=== PATIENT | female | born 1955 | race Caucasian/White ===

== ENCOUNTER → 2021-02-02 | Outpatient (CLI) | payer OTHER ==
--- NOTE | 2021-02-03 07:23 | CT ---
EXAMINATION TYPE: CT angio chest DATE OF EXAM: 02/02/2021 5:31 PM COMPARISON: Outside CT July 31, 2020 HISTORY: THORACIC AORTA ANEURYSM CT DLP: 444 mGycm Automated exposure control for dose reduction was used. CONTRAST: CTA scan of the thorax is performed with IV Contrast, patient injected with 100 mL of Isovue 370, ane urysm protocol. 3D reconstructed images are created on an independent workstation and reviewed.. FINDINGS: LUNGS: Mild to moderate underlying emphysematous change is redemonstrated greatest in upper lungs. Sc attered mild linear scarring bilaterally is again seen greatest in lower lungs. No suspicious nodules or masses. No pleural effusion or pneumothorax. MEDIASTINUM: There is satisfactory enhancement of the central pulmonary arteries which are enlarged c onsistent with underlying pulmonary artery hypertension. Ascending aorta measures up to 4.7 cm in warren meter axial image 33. Normal three-vessel origin from aortic arch. No aneurysmal extension into the a rch or descending aorta Are no greater than 1 cm hilar or mediastinal lymph nodes. No cardiomegaly or pericardial effusion is seen. OTHER: Focal calcification and scarring posterior left mid kidney axial image 75 redemonstrated. Foc al calcification adjacent to right hepatic lobe axial image 70 redemonstrated. IMPRESSION: Ascending aortic aneurysm up to 4.7 cm current study perhaps slightly increased in size f rom outside CT.
== END | disposition home or self-care (01) ==
LOC: RADCTMAIN 15:12
PROVIDERS: ATTEND Thoracic Surgery (Cardiothoracic Vascular Surgery)
DX: I71.2 Thoracic aortic aneurysm, without rupture (principal)
CPT/HCPCS: 71275; Q9967

== ENCOUNTER → 2022-02-04 | Outpatient (CLI) | payer OTHER ==
--- NOTE | 2022-02-04 16:01 | CT ---
EXAMINATION TYPE: CT angio chest CT DLP: 806 mGycm, Automated exposure control for dose reduction was used. DATE OF EXAM: 02/04/2022 3:23 PM COMPARISON: CTA chest 02/02/2021. CLINICAL INDICATION:Female, 66 years old with history of I71.2 THORACIC AORTIC AORTIC ANEURYSM; [facility] k up on thoracic aorta aneurysm TECHNIQUE/CONTRAST: CTA scan of the thorax is performed before and after IV contrast, patient injected with 100 mL of Iso shalini 370, coronal and sagittal reformats reviewed. MIP images are created and reviewed. FINDINGS: Vascular: Descending aorta measures up to 4.6 cm (series 8, image 70), this is stable from prior exam ination. No aneurysm extension into the arch or descending aorta. Atherosclerotic calcification of th e aorta and its branches. The celiac access, SMA, bilateral single renal arteries are patent. Main pu lmonary artery is prominent in size measuring up to 3.6 cm. Lungs/Pleura: No pleural effusion or pneumothorax. Right upper lobe, right middle lobe, and right low er lobe scarring demonstrated. Mild to moderate centrilobular emphysematous changes redemonstrated. N o suspicious pulmonary nodules or masses. Airway: Large airways are patent. Heart: Heart is within normal limits for size. No pericardial effusion. Minimal coronary artery calci fications. Mediastinum: No gross evidence of adenopathy. Musculoskeletal: No acute osseous abnormalities Soft Tissues: Unremarkable. Lower neck: No significant findings. Upper Abdomen: Stable left renal cortical calcification with focal scarring. Perihepatic calcificatio n redemonstrated possibly representing a peritoneal mice. IMPRESSION: * Stable ascending aortic aneurysm measuring up to 4.6 cm. * Mild to moderate emphysematous changes.
== END | disposition home or self-care (01) ==
LOC: RADCTMAIN 14:04
PROVIDERS: ATTEND Thoracic Surgery (Cardiothoracic Vascular Surgery)
DX: I71.2 Thoracic aortic aneurysm, without rupture (principal)
CPT/HCPCS: 71275; Q9967

== ENCOUNTER → 2023-02-23 | Outpatient (CLI) | payer MEDICARE ==
[2023-02-23 14:21] LABS: African American GFR (CKD) 78 (>60 ml/min/1.73 sqM); Blood Urea Nitrogen 15 mg/dL (7-17); Non-African American GFR(CKD) 68 (>60 ml/min/1.73 sqM)
--- NOTE | 2023-02-23 15:33 | CT ---
EXAMINATION TYPE: CT angio chest DATE OF EXAM: 02/23/2023 COMPARISON: 02/04/2022 HISTORY: Thoracic aortic aneurysm. CT DLP: 806.3 mGycm CONTRAST: CTA thoracic aorta with 3-D reconstruction is performed and with IV Contrast, patient injected with 1 00 ml mL of Isovue 370. Contrast CTA of the thoracic aorta was performed from the lung apex through the upper abdomen. 3D re construction imaging obtained at a separate workstation. CT Chest: THORACIC AORTA: There is a 4.5 cm ascending thoracic aortic aneurysm versus 4.6 cm previously. Stable prominence of the main pulmonary artery. Mild atheromatous changes seen. There is no evidence for d issection or periaortic collection. LUNGS: Mild to moderate emphysematous changes are redemonstrated. The lungs are clear and free of inf iltrate or atelectasis. No pulmonary nodule or mass is detected. No pleural effusion or CT evidence of interstitial lung disease. MEDIASTINUM: No evidence for mediastinal hematoma. The heart is not enlarged. No evidence for med iastinal mass or adenopathy. HILAR STRUCTURES: No evidence for mass. No hilar adenopathy is appreciated. OTHER: No significant abnormality. IMPRESSION- 1. Stable ascending thoracic aortic aneurysm.
== END | disposition home or self-care (01) ==
LOC: RADCTMAIN 13:33
PROVIDERS: ATTEND Thoracic Surgery (Cardiothoracic Vascular Surgery)
DX: I71.21 Aneurysm of the ascending aorta, without rupture (principal)
CPT/HCPCS: 82565; 84520; 71275; 36415; Q9967

== ENCOUNTER → 2023-12-29 | Outpatient (CLI) | payer MEDICARE ==
[2023-12-29 13:36] VITALS: BP 118/81; PULSE 52; RESP 16; TEMP 98.1
--- NOTE | 2023-12-29 14:28 | P.SLEEP ---
History of Present Illness DATE: 12/29/2023 CONSULTATION/NEW PATIENT EVALUATION HISTORY OF PRESENT ILLNESS/SLEEP-WAKE EVALUATION: 68-year-old lady had been e valuated in the sleep center for possible obstructive sleep apnea hypopnea syndrome, difficulties to initiate sleep and significant sleepiness during the day, nightmares. SLEEP SCHEDULE: Usually sleep schedule patient usually sleeps on the couch and only sometimes in her bedroom. She is trying to fall asleep around 10 PM and she gets up around 3:30 AM. FALLING ASLEEP: Patient has difficulties to fall asleep. Again usually fall asleep on the couch in front of the TV. DURING SLEEP: Patient wakes up from sleep multiple times with 2 episodes of nocturia. No history of hypnogogical hallucinations, sleep paralysis, or cataplexy. Sometimes patient missing vivid dreams. DURING THE DAY/WAKE STATE: Patient feels sleepiness during the day. [place] sleepiness scale is 10. Patient may take naps up to 3 times a day after 5 PM. PAST MEDICAL HISTORY: COPD, hypertension, PTSD, anxiety, depression, chronic fatigue syndrome, back pain. PAST SURGICAL HISTORY: Please see below. MEDICATIONS: Please see below. SOCIAL HISTORY: History of smoking for 57 years up to 2 packs a day, please see below. FAMILY HISTORY: Patient was adopted. REVIEW OF SYSTEMS: Multiple awakenings from sleep, sleepiness during the day, difficulties to initiate sleep at the beginning of the night. No fevers. No double vision. No recent chest pain. No shortness of breath. No abdominal pain. No bleeding episodes. No blood in urine. No seizure episodes. PHYSICAL EXAMINATION: GENERAL: A pleasant patient without any distress. VITAL SIGNS: Please see below. HEENT: PERRLA, EOMI. Evaluation of oropharynx showed tongue protrudes midline, low position of soft palate Mallampati 4. NECK: Supple. No JVD. Thyroid is not palpable. 15 inches in circumference. LUNGS: Clear to percussion and to auscultation. Good air exchange. No wheezing or rhonchi. HEART: S1, S2 regular. No murmurs, gallops or rubs. ABDOMEN: Soft and nontender. Bowel sounds are present. No organomegaly appreciated. EXTREMITIES: No clubbing or cyanosis. LEAD FRONT DESK AGENT: Patient is on wheelchair.Awake, alert, and oriented x3. Some weakness on the left side. ASSESSMENT: 1. Multiple awakenings from sleep, extremely low position of soft palate Mallampati 4, sleepiness during the day with [place] Sleepiness Scale 10. Obstructive sleep apnea hypopnea syndrome. 2. Difficulties to initiate sleep, psychophysiological insomnia. 3. Sleepiness during the day, vivid dreams during naps. Differential diagnosis include narcolepsy and hypersomnia. History of multiple sclerosis, possibility of secondary narcolepsy. 4. History of MS. 5 hypertension. 6 . COPD with history of smoking more than 100 packs years. 7. Obesity BMI 34.8. 8. History of depression. 9 . History of anxiety. 10. History of chronic fatigue syndrome. 11. Back problems with pain. PLAN: 1. Polysomnography for evaluation of patient's breathing during sleep. Multiple sleep latency test if sleep study will be negative for obstructive sleep apnea hypopnea syndrome. 2. I discussed with patient psychological techniques for treatment of insomnia including stimulus control, paradoxical intention, worry time, no watching clock . 3. Preferable position during sleep on the side. 4. No driving if patient feels any sleepiness. Patient is aware of civil and criminal liability for unsafe driving. 5. Sleep hygiene with regular sleep time for at least 7.5-8 hours. 6. Following plan after reading sleep study. Thank you very much for referring this patient for consultation. Sincerely, Prateek Mistry MD, PhD, FAASM. Diplomat of [employer], Sleep Medicine Board by [employer] [facility] [place] cc: Olivia Kaufman MD Past Medical History Past Medical History: COPD, Musculoskeletal Disorder Additional Past Medical History / Comment(s): aneurysm (aorta), MS, Stenosis of the Spine History of Any Multi-Drug Resistant Organisms: None Reported Past Psychological History: Anxiety, Depression, PTSD Smoking Status: Former smoker Past Alcohol Use History: None Reported Past Drug Use History: None Reported Medications and Allergies Home Medications Medication Instructions Recorded Confirmed Type Albuterol Inhaler [Ventolin Hfa 12/29/23 History Inhaler] Albuterol Inhaler [Ventolin Hfa 90 mcg INHALATION BID 12/29/23 12/29/23 History Inhaler] Aspirin EC [Ecotrin Low Dose] 81 mg PO DAILY 12/29/23 12/29/23 History Baclofen 5 mg PO DAILY 12/29/23 12/29/23 History Cyclobenzaprine [Flexeril] 5 mg PO HS 12/29/23 12/29/23 History Furosemide [Lasix] 20 mg PO DAILY 12/29/23 12/29/23 History Ibuprofen [Motrin] 800 mg PO BID 12/29/23 12/29/23 History Multivitamin [Multivitamins Adult See Rx Instructions .ROUTE .COMPLEX 12/29/23 12/29/23 History Gummies] Vortioxetine Hydrobromide 20 mg PO DAILY 12/29/23 12/29/23 History [Trintellix] atenoloL 100 mg PO DAILY 12/29/23 12/29/23 History buPROPion HCL [Wellbutrin XL] 150 mg PO DAILY 12/29/23 12/29/23 History traMADol HCL 12/29/23 History Physical Exam Vitals: Vital Signs Temp Pulse Resp BP Pulse Ox 12/29/23 13:35 98.1 F 52 L 16 118/81 93 L Intake and Output 12/28/23 12/29/23 12/29/23 22:59 06:59 14:59 Other: Weight 89.811 kg Sleep Note - Sleep Data ESS Total: 10 - Sleep Note Sleep Note: Temperature: 98.1 F Pulse Rate: 52 Respiratory Rate: 16 Blood Pressure: 118/81 SpO2: 93 Height: 5 ft 3.2 in Weight: 89.811 kg BMI: Neck Circumference: 15
== END ==
LOC: 3 N SLEEP 13:08
PROVIDERS: ATTEND Internal Medicine
DX: G47.33 Obstructive sleep apnea (adult) (pediatric) (principal); F51.04 Psychophysiologic insomnia; I10 Essential (primary) hypertension; J44.9 Chronic obstructive pulmonary disease, unspecified; E66.9 Obesity, unspecified; F32.A Depression, unspecified; F41.9 Anxiety disorder, unspecified; M53.9 Dorsopathy, unspecified; M54.9 Dorsalgia, unspecified; Z86.69 Personal history of other diseases of the nervous system and sense organs; Z87.891 Personal history of nicotine dependence; Z68.34 Body mass index [BMI] 34.0-34.9, adult; Z79.899 Other long term (current) drug therapy
CPT/HCPCS: 99211

== ENCOUNTER → 2024-02-27 | Outpatient (CLI) | payer MEDICARE ==
[2024-02-27 15:18] LABS: African American GFR (CKD) >90 (>60 ml/min/1.73 sqM); Blood Urea Nitrogen 15 mg/dL (7-17); Non-African American GFR(CKD) >90 (>60 ml/min/1.73 sqM)
--- NOTE | 2024-02-27 16:06 | CT ---
EXAMINATION TYPE: CT angio chest DATE OF EXAM: 02/27/2024 3:56 PM COMPARISON: 02/23/2023 HISTORY: Follow up for thoracic aortic aneurysm. priors in pacs. CT DLP: 784.10 mGycm Automated exposure control for dose reduction was used. CONTRAST: CTA scan of the thorax is performed with IV Contrast, patient injected with 100ml mL of Isovue 370, p ulmonary embolism protocol FINDINGS: There are moderate emphysematous changes within upper lobe predominance. There is no suspicious lung mass or nodule and no suspicious airspace consolidation or abnormal interstitial density. There is no pleural effusion, pleural thickening or pneumothorax. There is stable 4.5 cm dilatation of the ascending thoracic aorta. There is no mediastinal, hilar or axillary adenopathy Limited scanning through the upper abdomen reveals no gross abnormality. The osseous structures are intact. IMPRESSION: 1. Stable 4.5 cm aneurysm of the ascending thoracic aorta. 2. Moderate to marked emphysematous changes. 3. No acute cardiopulmonary disease.
== END | disposition home or self-care (01) ==
LOC: RADCTMAIN 14:26
PROVIDERS: ATTEND Thoracic Surgery (Cardiothoracic Vascular Surgery)
DX: I71.20 Thoracic aortic aneurysm, without rupture, unspecified
CPT/HCPCS: 36415; 71275; 82565; 84520